=== PATIENT | female | born 1975 | race Caucasian/White ===

== ENCOUNTER 2018-09-11 15:31 | Outpatient (REF) | payer OTHER, SELFPAY ==
--- NOTE | 2018-09-11 14:40 | PAPFT_PTH ---
PATIENT: Chica Dan LOC: [facility] U#:[id number] AGE/SX: 43/F ROOM: RE09/11/[address]: Debbie Mcgill : 1975 BED: DIS: 09/11/2018 SPEC #: [id number] RECD: 09/11/18 17:53 STATUS: KYAW REQ #: [id number] ALIYA: 09/11/18 14:[address]: Debbie Mcgill DEPT: [facility] Cytology RECD BY: Chrystal Krause Tissues: 1 - CX/ENDOCX FOR PAP SMEARS Procedures: PAP THIN PREP/UVM Screening HPV DNA PROBE Comments: [id number]
== END 2018-09-11 15:51 ==
LOC: LBN 15:31
PROVIDERS: Visit Provider Obstetrics & Gynecology Gynecology
DX: Z12.4 Encounter for screening for malignant neoplasm of cervix (principal); Z11.51 Encounter for screening for human papillomavirus (HPV)
CPT/HCPCS: 88142; 87624

== ENCOUNTER 2018-11-09 14:38 | Outpatient (REF) | payer OTHER, SELFPAY | END 2018-11-09 14:58 | LOC: LBN 14:38 | PROVIDERS: Visit Provider Obstetrics & Gynecology | DX: R39.15 Urgency of urination (principal) | CPT/HCPCS: 87086 ==

== ENCOUNTER 2019-01-28 12:03 | Emergency (ER) | payer OTHER, SELFPAY ==
[2019-01-28 12:06] VITALS: BP 124/76; PULSE 65; RESP 12; TEMP 36; O2SAT 100
--- NOTE | 2019-01-28 12:09 | DI.RAD_ITS ---
SYMPTOMS/DIAGNOSIS: PAIN AFTER FALL WHILE SKIING RIGHT KNEE: Three views. No acute fracture or dislocation is seen. The soft tissues are unremarkable. IMPRESSION: No acute abnormality.
--- NOTE | 2019-01-28 12:13 | ED.GENADUL_ITS ---
Discharge Plan Disposition Patient Disposition: HOME Condition: Improving Discharge Details Chief Complaint: Orthopedic Clinical Impression: Meniscus, medial, derangement Primary Care Provider: Unknown,Unknown ED Provider: Gilberto Smith Home Meds and New Rx's Prescriptions: Continued montelukast [Singulair] 10 mg tablet 10 mg PO QPM RF: 0 spironolactone 50 mg tablet 50 mg PO DAILY RF: 0 escitalopram oxalate 10 mg tablet 10 mg PO DAILY RF: 0 Breo Ellipta 100-25 mcg/dose blister with device 1 inh IH DAILY RF: 0 Discharge Instructions Instructions: Meniscus Tear (ED) Additional Instructions: We will refer you to orthopedic clinic for follow-up. Please call the office at [phone] for an appointment time. Continue the use of neoprene sleeve. Ice to reduce discomfort. Return for worsening pain or any other acute concerns. Continue all regularly prescribed medication Medical Decision Making 43-year-old female who had a twisting fall while skiing 12 days ago in which she did eject from the binding. She was able to ski down. She does not recall any other specifics but has since developed persistent medial right knee pain that is worse with full flexion and full extension. She has been able to weight-bear & denies any other injury. On exam she is tender overlying the right medial knee joint line, tender with valgus stress, and tender with external rotation of the foot. Concerned that her differential diagnosis includes medial meniscus injury/tear. Referred for x-ray which does not reveal acute bony injury. I do feel she will benefit from orthopedic follow-up to evaluate for medial meniscus injury. She is ambulatory, I will have her continue neoprene sleeve as well as conservative management. HPI General Mode of arrival: ambulatory . Date/Time Provider Initiated Documentation: 01/28/19 12:04 . Limitations to Documentation: no limitations . Information obtained by: patient . History of Present Illness 43 year old F presents to the emergency department with the chief complaint of R knee pain x 12 days after fall skiing, described as mild, Quality is described as aching, and is localized to the right and lower extremity. Patient reports no radiation. Patient started experiencing this day(s) Rest improves symptom(s), Movement worsens symptoms . Patient notes no other symptoms.. Related Data Home Medications Medication Instructions Recorded Confirmed escitalopram 10 mg tablet 10 mg PO DAILY 09/11/18 01/28/19 fluticasone furoate 100 1 inh IH DAILY 09/11/18 01/28/19 mcg-vilanterol 25 mcg/dose inhalation powder montelukast 10 mg tablet 10 mg PO QPM 09/11/18 01/28/19 spironolactone 50 mg tablet 50 mg PO DAILY 09/11/18 01/28/19 Allergies Allergy/AdvReac Type Severity Reaction Status Date / Time No Known Allergies Allergy Verified 01/28/19 12:09 General Stated Complaint: Orthopedic JABIER: 4 Review of Systems Review of Systems 6 systems reviewed and otherwise negative. 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 sexually active: Yes Smoking and Tabacco status: Former Tobacco Use second hand exposure: No alcohol intake: current alcohol intake frequency: a few times a month details: occasional substance use type: does not use What is your relationship status?: Panel score (0-1 are the most socially isolated patients): 1 Seatbelt use: always additional social history: Relocated from [facility]. 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 Female Reproductive History Menstrual control method: permanent sterilization ( vasectomy) History History 0 Para Hx # Term Pregnancies Multiple births Hx # Pregnancies Ectopic pregnancies AB induced Hx Number of Living Children AB spontaneous Exam Narrative Exam Narrative: GEN: awake, alert, oriented 3. Pleasant, well groomed, interactive. HEAD: Normocephalic, atraumatic ENT: Mucous membranes moist, oropharynx unremarkable, External ear exam unremarkable EYES: PERRL, EOMI EXT: Full ROM, no edema, no rash. The right knee has medial joint line tenderness and pain with valgus stress also pain with full extension and full flexion. Sensation intact throughout. No laxity Neuro: Grossly normal neurologic exam, conversant, interactive. Psych: Speech fluent, thoughts congruent, affect normal Course Vital Signs Temperature 36.0 C L 01/28/19 12:06 Pulse 65 01/28/19 12:06 Respiratory Rate 12 01/28/19 12:06 Blood Pressure 124/76 01/28/19 12:06 Pulse Oximetry 100 01/28/19 12:06 Temperature 36.0 C L 01/28/19 12:06 Temperature Source Temporal Artery Scan 01/28/19 12:06 Pulse 65 01/28/19 12:06 Respiratory Rate 12 01/28/19 12:06 Respiratory Effort Non-Labored 01/28/19 12:07 Blood Pressure 124/76 01/28/19 12:06 Blood Pressure Position Sitting 01/28/19 12:06 Pulse Oximetry 100 01/28/19 12:06 Oxygen Delivery Method Room Air 01/28/19 12:06 Oxygen Flow Rate 0 01/28/19 12:06 Pain Level 2 01/28/19 12:06
[2019-01-28 12:50] VITALS: BP 124/76; PULSE 65; RESP 12; TEMP 36; O2SAT 100
== END 2019-01-28 12:51 | disposition home or self-care (01) ==
PROVIDERS: Emergency Provider Emergency Medicine
DX: M23.231 Derangement of other medial meniscus due to old tear or injury, right knee (principal); V00.321A Fall from snow-skis, initial encounter
CPT/HCPCS: 73562; 99283; 99282

== ENCOUNTER 2019-02-12 00:59 | Outpatient (CLI) | payer OTHER, SELFPAY ==
--- NOTE | 2019-02-12 09:03 | DI.MRI_ITS ---
SYMPTOM/DIAGNOSIS: RT KNEE LOCKED, PAIN, INTERNAL DERANGEMENT, M23.91 RIGHT KNEE MRI: Routine noncontrast examination. Comparison is made with xray of 01/28/19. The anterior cruciate and posterior cruciate ligaments are intact. There is edema seen around the medial collateral ligament consistent with a grade II sprain. The lateral collateral ligament is intact as are the extensor mechanism, medial and lateral retinaculum and popliteus tendon. There is no evidence of a meniscal tear. The articular cartilage is well maintained. There is a small joint effusion. A very small popliteal cyst is identified. No soft tissue mass is appreciated. The muscles show normal signal and size. No significant fatty atrophy is seen. There are areas of marrow edema seen in the medial femoral condyle and both the medial and lateral tibial plateau. No evidence of an occult fracture or avascular necrosis is seen. These likely reflect contusions. IMPRESSION: 1. No evidence of a meniscal or ligament tear. 2. Grade II sprain of the medial collateral ligament. 3. Bone bruises involving the distal femur and proximal tibia.
== END 2019-02-12 01:19 ==
PROVIDERS: Visit Provider Student in an Organized Health Care Education/Training Program
DX: M25.561 Pain in right knee (principal); M23.91 Unspecified internal derangement of right knee; S83.411A Sprain of medial collateral ligament of right knee, initial encounter; M25.461 Effusion, right knee
CPT/HCPCS: 73721

== ENCOUNTER 2019-09-17 15:12 | Outpatient (CLI) | payer OTHER, SELFPAY ==
[2019-09-17 17:03] LABS: TSH (W/Ref FT4) 1.35 uIU/mL (0.36-3.74)
== END 2019-09-17 15:32 ==
PROVIDERS: PCP Student in an Organized Health Care Education/Training Program; Visit Provider Obstetrics & Gynecology Gynecology
DX: N92.6 Irregular menstruation, unspecified (principal)
CPT/HCPCS: 36415; 84443

== ENCOUNTER 2019-09-17 15:25 | Outpatient (REF) | payer OTHER, SELFPAY ==
--- NOTE | 2019-09-17 14:40 | PAPFT_PTH ---
PATIENT: Chica Dan LOC: [facility] U#:[id number] AGE/SX: 44/F ROOM: RE09/17/[address]: Debbie Mcgill : 1975 BED: DIS: 09/17/2019 SPEC #: [id number] RECD: 09/17/19 18:33 STATUS: JUANReba REQ #: [id number] ALIYA: 09/17/19 14:[address]: Debbie Mcgill DEPT: [facility] Cytology RECD BY: Chrystal Krause ENTERED: 09/17/19 18:33 SP TYPE: PAPFT CHERELLE DR: Venice Dias DO Tissues: 1 - CX/ENDOCX FOR PAP SMEARS Procedures: PAP THIN PREP/UVM Screening HPV DNA PROBE Comments: [id number]
== END 2019-09-17 15:45 ==
LOC: LBN 15:25
PROVIDERS: PCP Student in an Organized Health Care Education/Training Program; Visit Provider Obstetrics & Gynecology Gynecology
DX: Z12.4 Encounter for screening for malignant neoplasm of cervix (principal); Z11.51 Encounter for screening for human papillomavirus (HPV)
CPT/HCPCS: 88142; 87624

== ENCOUNTER 2020-10-20 02:34 | Outpatient (CLI) | payer OTHER, SELFPAY ==
--- NOTE | 2020-10-20 14:30 | DI.MAMMO_ITS ---
EXAM: MG MAMMO SCREENING CLINICAL HISTORY: screening TECHNIQUE: Bilateral full field digital CC and MLO mammographic images were obtained with 3D tomosyn thesis and utilizing computer aided detection (CAD). COMPARISON: None. FINDINGS: Masses/Architectural Distortion: None seen. Bilateral biopsy clips. Microcalcifications: No suspicious pleomorphic-type are seen. Skin Thickening/Nipple Retraction: None. IMPRESSION: 1. No significant interval change with no specific features of malignancy noted. 2. Unless there is more urgent need, screening mammography is recommended, as per [place] [employer] guidelines. BI-RADS Category 1 - Negative Breast Density - Category C - Heterogeneously dense Breast density category C or D implies that the patient has dense breast tissue. Dense breast tissue is very common and is not abnormal but dense breast tissue can make it harder to find cancer on a ma mmogram. Also, dense breast tissue may increase their breast cancer risk. This information about the result of the mammogram report was provided to the patient to raise their awareness. Use this report when you speak with the patient about their risks for breast cancer, which includes their family hist ory. At that time, you may recommend for more screening tests (Ultrasound or MRI) as they might be us eful based on their risk. A negative radiographic report should not delay biopsy if a dominant or clinically suspicious mass is present. Up to ten percent of cancers are not identified on mammography. A negative report may reinforce clinical impression. Adenosis and dense breasts may obscure an underlying neoplasm. False positive reports average 6 to 10%. Patient will receive a letter notifying them of these results.
== END 2020-10-20 02:54 ==
PROVIDERS: PCP Student in an Organized Health Care Education/Training Program; Visit Provider Obstetrics & Gynecology Gynecology
DX: Z12.31 Encounter for screening mammogram for malignant neoplasm of breast (principal)
CPT/HCPCS: 77063; 77067

== ENCOUNTER 2021-08-13 02:52 | Outpatient (CLI) | payer OTHER, SELFPAY ==
[2021-08-13 12:14] LABS: HCT 40.4 % (36.0-46.0); HGB 13.1 g/dL (11.2-15.7); MCH 29.7 pg (27.0-33.0); MCHC 32.4 % (32.0-36.0); MCV 91.6 fL (80-95); MPV 10.8 fL (8.0-11.0); Platelet Count 231 10^3/uL (130-400); RBC 4.41 10^6/uL (3.93-5.22); RDW 12.5 % (11.7-14.6); RDW-SD 42.3 fL; WBC 4.69 10^3/uL (4.4-10.8)
[2021-08-13 13:25] LABS: Folate 9.8 ng/mL (8.6-20.0)
[2021-08-13 13:34] LABS: ALT 23 U/L (14-59); AST 17 U/L (15-37); Albumin 3.9 g/dL (3.4-5.0); Alkaline Phosphatase 49 U/L (46-116); Anion Gap 7.1 mmol/L (3-11); BUN 12 mg/dL (7-18); Bilirubin, Total 0.4 mg/dL (0.2-1.0); CO2 28.9 mmol/L (21.0-32.0); CREATININE 0.6 mg/dL (0.55-1.02); Calcium 9.2 mg/dL (8.5-10.1); Calculated LDL 75 mg/dL (<100); Chloride 107 mmol/L (98-107); Cholesterol 161 mg/dL (<200); Ferritin 36 ng/mL (8-252); Glucose 77 mg/dL (74-106); HDL Cholesterol 77 mg/dL (40-60); Potassium 3.9 mmol/L (3.5-5.1); Sodium 143 mmol/L (136-145); Total Protein 6.9 g/dL (6.4-8.2); Triglyceride 46 mg/dL (<150); Vitamin B12 145 pg/mL (193-986)
== END 2021-08-13 02:53 | disposition home or self-care (01) ==
LOC: LBO 02:53
PROVIDERS: PCP Student in an Organized Health Care Education/Training Program; Visit Provider Student in an Organized Health Care Education/Training Program
DX: D64.9 Anemia, unspecified; R53.83 Other fatigue; K92.2 Gastrointestinal hemorrhage, unspecified; Z79.899 Other long term (current) drug therapy
CPT/HCPCS: 36415; 80053; 80061; 85027; 82272; 82607; 82728; 82746

== ENCOUNTER 2022-01-11 03:48 | Outpatient (CLI) | payer OTHER, SELFPAY ==
[2022-01-11 13:07] LABS: Iron 161 ug/dL (50-170); Total Iron Binding Capacity 323 ug/dL (250-450); Transferrin Sat 50 % (15-50)
[2022-01-11 13:15] LABS: Iron 162 ug/dL (50-170)
[2022-01-11 13:33] LABS: Folate 15.6 ng/mL (8.6-20.0); Vitamin B12 471 pg/mL (193-986)
[2022-01-11 23:04] LABS: Ferritin 15 ng/mL (10-291)
== END 2022-01-11 03:49 | disposition home or self-care (01) ==
LOC: LBO 03:48
PROVIDERS: PCP Student in an Organized Health Care Education/Training Program; Visit Provider Student in an Organized Health Care Education/Training Program
DX: D64.9 Anemia, unspecified (principal); I95.9 Hypotension, unspecified; N92.6 Irregular menstruation, unspecified; R53.83 Other fatigue; E53.8 Deficiency of other specified B group vitamins
CPT/HCPCS: 36415; 82607; 82728; 82746; 83540; 83550

== ENCOUNTER 2022-03-15 00:46 | Outpatient (CLI) | payer OTHER, SELFPAY ==
--- NOTE | 2022-03-15 08:30 | DI.MAMMO_ITS ---
Exam(s) MAMMO SCREENING EXAM: MAMMO SCREENING CLINICAL HISTORY: screening TECHNIQUE: Mammograms were interpreted according to the usual protocol including computer analysis w [employer] CAD system, tomosynthesis and C-view imaging. COMPARISON: 2016 through 2019 FINDINGS: The breasts are composed of heterogeneously dense fibroglandular densities, Breast Density category C . No suspicious masses or suspicious microcalcifications are seen. Biopsy marker clip medial left darius st as well as upper-outer quadrant right breast. No skin thickening or abnormal axillary lymph nodes are seen. There has been no significant change from prior exams. IMPRESSION: BI-RADS Category 1, Negative mammogram. Yearly screening mammography is recommended. Breast Density Category C, heterogeneously Dense. The mammogram demonstrates the patient's breast tissue is dense. Dense breast tissue is very common a nd is not abnormal but dense breast tissue can make it harder to find cancer on a mammogram. Also, de nse breast tissue may increase breast cancer risk. This information about the result of the mammogram report was provided to the patient to raise their awareness. Use this report when you speak with the patient about their risks for breast cancer, which includes their family history. At that time, you may recommend additional screening tests (Ultrasound or MRI) as they might be useful based on their r isk. A negative radiographic report should not delay biopsy if a dominant or clinically suspicious mass is present. Up to ten percent of cancers are not identified on mammography. A negative report may reinforce clinical impression. Adenosis and dense breasts may obscure an underlying neoplasm. False positive reports average 6 to 10%.
== END 2022-03-15 01:06 ==
PROVIDERS: PCP Student in an Organized Health Care Education/Training Program; Visit Provider Obstetrics & Gynecology Gynecology
DX: Z12.31 Encounter for screening mammogram for malignant neoplasm of breast (principal)
CPT/HCPCS: 77063; 77067

== ENCOUNTER → 2022-07-15 15:10 | Outpatient (CLI) | payer OTHER, SELFPAY ==
--- NOTE | 2022-07-15 | DI.RAD_ITS ---
Exam(s) XR FOOT LT COMPLETE EXAM: XR FOOT LT COMPLETE CLINICAL HISTORY: PAIN IN LEFT FOOT--M79.672. TECHNIQUE: 2D digital imaging was performed of the left foot. Three images were obtained. AP, obli que and lateral views were obtained. COMPARISON: No exams were available for comparison FINDINGS: BONES: No acute fracture is present. No bony destructive lesion is seen. JOINTS: No dislocation present. SOFT TISSUE: Normal. IMPRESSION: No acute fracture or dislocation. DATA REPOSITORY: RADIATION DOSE DELIVERED:
--- NOTE | 2022-07-15 | DI.RAD_ITS ---
Exam(s) XR ANKLE LT COMPLETE EXAM: XR ANKLE LT COMPLETE CLINICAL HISTORY: PAIN IN LEFT FOOT--M79.672 TECHNIQUE: 2D digital imaging was performed of the left ankle. Three images were obtained. AP, lat eral and oblique views were obtained. COMPARISON: No exams were available for comparison FINDINGS: BONES: No acute fracture is present. No bony destructive lesion is seen. JOINTS:The ankle mortise is normally aligned. SOFT TISSUE: Normal. IMPRESSION: Unremarkable radiographs of the left ankle. DATA REPOSITORY: RADIATION DOSE DELIVERED:
== END ==
PROVIDERS: PCP Student in an Organized Health Care Education/Training Program; Visit Provider Nurse Practitioner Family
DX: M79.672 Pain in left foot (principal)
CPT/HCPCS: 73610; 73630

== ENCOUNTER 2022-10-04 01:53 | Outpatient (CLI) | payer OTHER, SELFPAY ==
[2022-10-04 10:03] LABS: Anion Gap 8.2 mmol/L (3-11); BUN 10 mg/dL (7-18); CO2 26.8 mmol/L (21.0-32.0); CREATININE 0.8 mg/dL (0.55-1.02); Chloride 104 mmol/L (98-107); Estimated GFR 91.97 (mL/min/1.73m2); Glucose 95 mg/dL (74-106); Potassium 4.1 mmol/L (3.5-5.1); Sodium 139 mmol/L (136-145)
[2022-10-04 10:17] LABS: TSH (W/Ref FT4) 1.21 uIU/mL (0.36-3.74)
[2022-10-07 10:19] LABS: HIV-1/2 Ag & Ab Screen Negative (Negative)
[2022-10-07 10:39] LABS: Hepatitis C Ab w Rflx HCV PCR Negative (Negative)
== END 2022-10-04 01:54 | disposition home or self-care (01) ==
LOC: LBO 01:54
PROVIDERS: PCP Student in an Organized Health Care Education/Training Program; Visit Provider Nurse Practitioner
DX: R53.83 Other fatigue (principal); D64.9 Anemia, unspecified; I95.89 Other hypotension; N92.5 Other specified irregular menstruation; Z11.4 Encounter for screening for human immunodeficiency virus [HIV]; Z11.59 Encounter for screening for other viral diseases
CPT/HCPCS: 36415; 80048; 86803; 87389; 84443

== ENCOUNTER 2023-03-21 16:20 | Outpatient (REF) | payer OTHER, SELFPAY ==
--- NOTE | 2023-03-21 13:25 | PAPFT_PTH ---
PATIENT: Chica Dan LOC: [facility] U#:[id number] AGE/SX: 47/F ROOM: RE03/21/[address]: Debbie Mcgill : 1975 BED: DIS: 03/21/2023 SPEC #: [id number] RECD: 03/21/23 17:54 STATUS: KYAW REDejuan #: [id number] ALIYA: 03/21/23 13:[address]: Debbie Mcgill DEPT: [facility] Cytology RECD BY: Chrystal Krause ENTERED: 03/21/23 17:54 SP TYPE: PAPFT OTHR DR: Venice Dias DO Tissues: 1 - CX/ENDOCX FOR PAP SMEARS Procedures: PAP THIN PREP/UVM Screening Comments: [id number]
== END 2023-03-21 16:21 | disposition home or self-care (01) ==
LOC: LBN 16:20
PROVIDERS: PCP Student in an Organized Health Care Education/Training Program; Visit Provider Obstetrics & Gynecology Gynecology
DX: Z12.4 Encounter for screening for malignant neoplasm of cervix (principal)
CPT/HCPCS: 88142

== ENCOUNTER 2023-04-11 01:07 | Outpatient (CLI) | payer OTHER, SELFPAY ==
--- NOTE | 2023-04-11 07:50 | DI.MAMMO_ITS ---
Exam(s) MAMMO SCREENING EXAM: MAMMO SCREENING CLINICAL HISTORY: screening TECHNIQUE: Bilateral full field digital CC and MLO mammographic images were obtained with 3D tomosyn thesis and utilizing computer aided detection (CAD). COMPARISON: Available for comparison. FINDINGS: Masses/Architectural Distortion: None seen. There biopsy clip seen in both breasts. The well-circums cribed nodule in the left axilla is unchanged in size at 9 mm. No suspicious nodules or areas of arc hitectural distortion are seen. Microcalcifications: No suspicious pleomorphic-type are seen. Skin Thickening/Nipple Retraction: None. IMPRESSION: 1. No significant interval change with no specific features of malignancy noted. 2. Unless there is more urgent need, screening mammography is recommended, as per [place] [employer] [employer] guidelines. BI-RADS Category 1 - Negative Breast Density - Category C - Heterogeneously dense Breast density category C or D implies that the patient has dense breast tissue. Dense breast tissue is very common and is not abnormal but dense breast tissue can make it harder to find cancer on a ma mmogram. Also, dense breast tissue may increase their breast cancer risk. This information about the result of the mammogram report was provided to the patient to raise their awareness. Use this report when you speak with the patient about their risks for breast cancer, which includes their family hist ory. At that time, you may recommend for more screening tests (Ultrasound or MRI) as they might be us eful based on their risk. A negative radiographic report should not delay biopsy if a dominant or clinically suspicious mass is present. Up to ten percent of cancers are not identified on mammography. A negative report may reinforce clinical impression. Adenosis and dense breasts may obscure an underlying neoplasm. False positive reports average 6 to 10%. Patient will receive a letter notifying them of these results.
== END 2023-04-11 01:27 ==
LOC: DI 01:07
PROVIDERS: PCP Student in an Organized Health Care Education/Training Program; Visit Provider Obstetrics & Gynecology Gynecology
DX: Z12.31 Encounter for screening mammogram for malignant neoplasm of breast (principal)
CPT/HCPCS: 77063; 77067

== ENCOUNTER 2025-02-28 02:10 | Outpatient (CLI) | payer OTHER, SELFPAY ==
--- NOTE | 2025-02-28 12:18 | DI.MAMMO_ITS ---
Exam(s) MAMMO SCREENING EXAM: MAMMO SCREENING CLINICAL HISTORY: screening,Z12.39 TECHNIQUE: Mammograms were interpreted according to the usual protocol including computer analysis w [employer] CAD system, tomosynthesis and C-view imaging. COMPARISON: 2016 through 2022 FINDINGS: The breasts are composed of heterogeneously dense fibroglandular densities, Breast Density category C . No suspicious masses or suspicious microcalcifications are seen. Biopsy marker clips are again noted in both breasts. No skin thickening or abnormal axillary lymph nodes are seen. There has been no significant change from prior exams. IMPRESSION: BI-RADS Category 1, Negative mammogram. Yearly screening mammography is recommended. Breast Density Category C, heterogeneously Dense. The mammogram demonstrates the patient's breast tissue is dense. Dense breast tissue is very common a nd is not abnormal but dense breast tissue can make it harder to find cancer on a mammogram. Also, de nse breast tissue may increase breast cancer risk. This information about the result of the mammogram report was provided to the patient to raise their awareness. Use this report when you speak with the patient about their risks for breast cancer, which includes their family history. At that time, you may recommend additional screening tests (Ultrasound or MRI) as they might be useful based on their r isk. A negative radiographic report should not delay biopsy if a dominant or clinically suspicious mass is present. Up to ten percent of cancers are not identified on mammography. A negative report may reinforce clinical impression. Adenosis and dense breasts may obscure an underlying neoplasm. False positive reports average 6 to 10%.
== END 2025-02-28 02:30 ==
LOC: DI 02:10
PROVIDERS: PCP Nurse Practitioner Adult Health; Visit Provider Obstetrics & Gynecology Gynecology
DX: Z12.31 Encounter for screening mammogram for malignant neoplasm of breast (principal); R92.333 Mammographic heterogeneous density, bilateral breasts
CPT/HCPCS: 77063; 77067

== ENCOUNTER 2025-03-28 02:44 | Outpatient (CLI) | payer OTHER, SELFPAY ==
[2025-03-28 12:18] LABS: Abs Immature Grans 0.02 10^3/uL (0.0-0.06); Absolute Basophil Count 0.03 10^3/uL (0.0-0.2); Absolute Eosinophil Count 0.02 10^3/uL (0.0-0.7); Absolute Lymphocyte Count 1.56 10^3/uL (1.2-3.4); Absolute Monocyte Count 0.46 10^3/uL (0.1-0.8); Absolute Neutrophil Count 6.77 10^3/uL (1.2-6.7); Basophils % 0.3 %; Eosinophils % 0.2 %; HCT 42.4 % (36.0-46.0); HGB 14.3 g/dL (11.2-15.7); Immature Grans % 0.2 %; Lymphocytes % 17.6 %; MCH 30.7 pg (27.0-33.0); MCHC 33.7 % (32.0-36.0); MCV 91 fL (80-95); MPV 10.8 fL (8.0-11.0); Monocytes % 5.2 %; Neutrophils % 76.5 %; Platelet Count 254 10^3/uL (130-400); RBC 4.66 10^6/uL (3.93-5.22); RDW 12.6 % (11.7-14.6); RDW-SD 41.6 fL; WBC 8.86 10^3/uL (4.4-10.8)
[2025-03-28 13:02] LABS: ALT 24 U/L (14-59); AST 18 U/L (15-37); Albumin 4.1 g/dL (3.4-5.0); Alkaline Phosphatase 60 U/L (46-116); BUN 10 mg/dL (7-18); Bilirubin, Total 0.6 mg/dL (0.2-1.0); CREATININE 0.7 mg/dL (0.55-1.02); Calcium 9.9 mg/dL (8.5-10.1); Chloride 102 mmol/L (98-107); Estimated GFR 106.62 (mL/min/1.73m2); Ferritin 22 ng/mL (8-252); Glucose 91 mg/dL (74-106); Potassium 3.7 mmol/L (3.5-5.1); Sodium 139 mmol/L (136-145); TSH 1.34 uIU/mL (0.36-3.74); Total Protein 7.5 g/dL (6.4-8.2); Vitamin D 25 Total 22 ng/mL (30-100)
[2025-03-28 13:24] LABS: FREE T4 0.67 ng/dL (0.76-1.46)
[2025-03-28 22:15] LABS: Estradiol 174 pg/mL (See Note); Sex Hormone Binding Globulin 70.1 nmol/L (See Note)
[2025-04-04 14:41] LABS: Testosterone, Total 8.1 ng/dL (8-60)
== END 2025-03-28 02:45 | disposition home or self-care (01) ==
LOC: LBO 02:44
PROVIDERS: PCP Nurse Practitioner Adult Health; Visit Provider Nurse Practitioner Family
DX: N95.1 Menopausal and female climacteric states (principal); R53.83 Other fatigue
CPT/HCPCS: 36415; 80053; 82306; 84403; 82670; 82728; 84270; 84439; 84443; 85025

== ENCOUNTER 2025-09-19 03:14 | Outpatient (CLI) | payer OTHER, SELFPAY ==
[2025-09-19 10:09] LABS: ALT 30 U/L (14-59); AST 16 U/L (15-37); Albumin 3.7 g/dL (3.4-5.0); Alkaline Phosphatase 65 U/L (46-116); Anion Gap 8.1 mmol/L (3-11); BUN 11 mg/dL (7-18); Bilirubin, Total 0.5 mg/dL (0.2-1.0); CO2 28.9 mmol/L (21.0-32.0); Calcium 8.9 mg/dL (8.5-10.1); Calculated LDL 87 mg/dL (<100); Chloride 102 mmol/L (98-107); Cholesterol 180 mg/dL (<200); Estimated GFR 109.96 (mL/min/1.73m2); Glucose 92 mg/dL (74-106); HDL Cholesterol 80 mg/dL (>or=50); Potassium 3.8 mmol/L (3.5-5.1); Sodium 139 mmol/L (136-145); Total Protein 6.5 g/dL (6.4-8.2); Triglyceride 67 mg/dL (<150)
[2025-09-19 17:53] LABS: TSH (W/Ref FT4) 2.05 uIU/mL (0.36-3.74)
[2025-09-19 22:24] LABS: Hepatitis C Ab w Rflx HCV PCR Negative (Negative)
[2025-09-19 22:29] LABS: HIV-1/2 Ag & Ab Screen Negative (Negative)
== END 2025-09-19 03:15 | disposition home or self-care (01) ==
PROVIDERS: Nurse Practitioner Family; PCP Nurse Practitioner Adult Health; Visit Provider Nurse Practitioner Adult Health
DX: Z11.4 Encounter for screening for human immunodeficiency virus [HIV] (principal); Z11.59 Encounter for screening for other viral diseases; Z13.220 Encounter for screening for lipoid disorders; Z13.1 Encounter for screening for diabetes mellitus
CPT/HCPCS: 36415; 80053; 80061; 84403; 86803; 87389; 84443